=== PATIENT | male | born 1960 | race Caucasian/White ===

== ENCOUNTER 2023-09-06 14:36 | Outpatient (REF) | payer OTHER, SELFPAY ==
[2023-09-06 16:02] LABS: Erythrocyte Sedimentation Rate 16 MM/HR (0-15)
[2023-09-07 08:00] LABS: Syphilis Screen Reactive (Nonreactive)
[2023-09-08 13:03] LABS: Lyme Abs Screen <0.90 index
[2023-09-12 14:31] LABS: RPR Quantitative Non-Reactive (Nonreactive); T.Pallidum Particle Agg Test Reactive (Nonreactive)
== END 2023-09-06 14:37 | disposition home or self-care (01) ==
LOC: HO.LAB 14:36
PROVIDERS: PCP Internal Medicine; Visit Provider Psychiatry & Neurology Neurology
DX: I67.9 Cerebrovascular disease, unspecified (principal)
CPT/HCPCS: 36415; 85652; 86592; 86617; 86618; 86780